=== PATIENT | female | born 1970 | race Caucasian/White ===

== ENCOUNTER 2017-02-03 15:53 | Emergency (ER) | payer OTHER ==
[2017-02-03 16:21] VITALS: BP 110/75; PULSE 98; RESP 20; TEMP 98.1; O2SAT 99
--- NOTE | 2017-02-05 23:45 | CARD ---
APPROVED REPORT EKG Measurement Heart [id number] <Conclusion> Normal sinus rhythm Low voltage QRS Septal infarct, age undetermined Abnormal ECG
== END 2017-02-03 19:02 | disposition left against medical advice (07) ==
LOC: C.ER 15:53
DX: R07.9 Chest pain, unspecified (principal); Z02.9 Encounter for administrative examinations, unspecified

== ENCOUNTER 2017-02-04 13:51 | Emergency (ER) | payer OTHER ==
--- NOTE | 2017-02-04 14:17 | C.PDOC ---
History Of Present Illness 46 year old patient, with a history of Lupus, presents to the ED complaining of chronic generalized body pain. Patient states the pain has been worse for the past week to her upper abdomen and right flank area. Patient denies shortness of breath, chest pain, numbness, weakness, incontinence, vomiting, diarrhea, or fever. Time Seen by Provider: 02/04/17 14:08 Chief Complaint (Nursing): Back Pain History Per: Patient History/Exam Limitations: no limitations Onset/Duration Of Symptoms: Worse Since (1 week), Other (chronic pain) Current Symptoms Are (Timing): Still Present Quality Of Discomfort: "Pain" Severity: Mild Pain Scale Rating Of: 3 Previous Symptoms: Chronic Pain Associated Symptoms: None Exacerbating Factor(s): Nothing Recent travel outside of the [place]: No Past Medical History Reviewed: Historical Data, Nursing Documentation, Vital Signs Vital Signs: Last Vital Signs Temp 97.7 F 02/04/17 22:34 Pulse 76 02/04/17 22:34 Resp 16 02/04/17 22:34 BP 117/66 02/04/17 22:34 Pulse Ox 99 02/04/17 22:34 - Medical History PMH: Arthritis, Asthma, Bronchitis, Depression, Hypothyroidism, Migraine, Rheumatoid Arthritis Surgical History: Appendectomy, Cholecystectomy, Tonsillectomy Family History: States: Unknown Family Hx - Social History Hx Tobacco Use: Yes Hx Alcohol Use: No Hx Substance Use: No - Immunization History Hx Tetanus Toxoid Vaccination: No Hx Influenza Vaccination: No Hx Pneumococcal Vaccination: No Review Of Systems Except As Marked, All Systems Reviewed And Found Negative. Constitutional: Negative for: Fever Cardiovascular: Negative for: Chest Pain Respiratory: Negative for: Shortness of Breath Gastrointestinal: Positive for: Abdominal Pain. Negative for: Vomiting, Diarrhea Musculoskeletal: Positive for: Back Pain, Other (right flank) Neurological: Negative for: Weakness, Numbness Physical Exam - Physical Exam Appears: Non-toxic, No Acute Distress Skin: Warm, Dry Head: Atraumatic, Normacephalic Neck: Normal ROM, Supple Chest: Symmetrical, Tenderness (Right ribs) Gastrointestinal/Abdominal: Soft, Tenderness (RUQ) Back: Other (right upper back tenderness) Neurological/Psych: Oriented x3, Normal Speech, Normal Cognition Gait: Steady ED Course And Treatment - Laboratory Results Result Diagrams: 02/04/17 15:09 02/04/17 15:09 O2 Sat by Pulse Oximetry: 100 (RA) Pulse Ox Interpretation: Normal - Other Rad Chest XR X-Ray: Viewed By Me, Read By Radiologist (Martha Marino) Interpretation: HISTORY: right sided pain. COMPARISON: Comparison chest 12/16. TECHNIQUE: Chest PA and lateral. FINDINGS: LUNGS: Mild bibasilar atelectasis. Additionally, the interstitial markings are slightly increased and coarsened ; rule out sequela of reactive/inflammatory airway disease or viral illness. PLEURA: No significant pleural effusion identified. No pneumothorax apparent. CARDIOVASCULAR: Normal. OSSEOUS STRUCTURES: No significant abnormalities. VISUALIZED UPPER ABDOMEN: Normal. OTHER FINDINGS: None. IMPRESSION: Mild bibasilar atelectasis. Additionally, the interstitial markings are slightly increased and coarsened; rule out sequela of reactive/inflammatory airway disease or viral illness. - CT Scan/US Abdomen US Other Rad Studies (CT/US): Read By Radiologist (Martha Marino), Radiology Report Reviewed CT/US Interpretation: Right upper quadrant ultrasound dated 02/04/2017. History : Pain. Sonographic evaluation limited to the right upper quadrant performed. Comparison made with prior CTA of the chest 04/24/2015 which image the upper abdomen. Findings: The liver is upper limits of normal measuring nearly 17 cm in CC dimension. Liver exhibits smooth contour but slight increased echotexture suggesting fatty infiltration ; other infiltrative hepatocellular disease process not excluded. No obvious hepatic mass collection or calcification. Patient is status post cholecystectomy. Echogenic density within the gallbladder fossa may represent metallic surgical clip which are readily visible on prior CT scan. Visualized portions of the pancreas appear grossly unremarkable. Right kidney measures 11.6 times 4.6 x 3.7 cm. No evidence shadowing calculi or hydronephrosis. No obvious renal mass or collection. Impression: Findings suggest mild fatty hepatic infiltration however other infiltrative hepatocellular disease process not excluded. Status post cholecystectomy with echogenic focus within the gallbladder fossa likely representing metallic surgical clip. CTA Other Rad Studies (CT/US): Read By Radiologist (Michelle Hampton MD), Radiology Report Reviewed CT/US Interpretation: EXAM: CT Angiography Chest With Intravenous Contrast. CLINICAL HISTORY: 46 years old, female; Signs and symptoms; Other: Pe; Additional info: Right chest pain, h/o lupus,. elevated ddimer. TECHNIQUE: Axial computed tomographic angiography images of the chest with intravenous contrast using. pulmonary embolism protocol. This CT exam was performed using one or more of the following dose. reduction techniques: automated exposure control, adjustment of the mA and/or kV according to. patient size, and/or use of iterative reconstruction technique. CONTRAST: 100 mL of visipaque administered intravenously. COMPARISON: CT - ANGIO CHEST PE PROTOCO 04/24/2015 9 :44:43 PM. FINDINGS: Pulmonary arteries: Unremarkable. No pulmonary embolism. Aorta: No acute findings. No thoracic aortic aneurysm. Lungs: Small airway trapping and microatelectasis. Subsegmental atelectasis right middle lobe 5.5. mm right middle lobe nodule, with interval increase in size. Pleural space: Unremarkable. No significant effusion. No pneumothorax. Heart: Unremarkable. No cardiomegaly. No significant pericardial effusion. No evidence of RV. dysfunction. Bones/joints: No acute fracture. No dislocation. Soft tissues: Unremarkable. Lymph nodes: Nonspecific hilar and mediastinal lymph nodes. Liver: Prominent liver and spleen. Gallbladder and bile ducts: Prior cholecystectomy. Dystrophic calcifications in the liver. IMPRESSION: No PE or acute aortic findings.. no CT right heart strain. Small airway trapping and microatelectasis, right middle lobe atelectasis. Progressive. No pleural. effusion. Infection, interstitial pneumonitis, Boop possible. No significant pleural or pericardial. effusion. 5.5 mm right middle lobe nodule. In low- risk patients (minimal or absent history of smoking or other known risk factors) , recommend CT. at 12 months. If stable, no further follow-up. For high-risk patients (history of smoking or other known. risk factors), recommend initial CT at 6-12 months. If stable, repeat CT at 18-24 months. Progress Note: Plan: -Labs. -Chest XR. -Abdomen US. -Dilaudid and IV fluids. Patient states she has difficulty taking in air when breathing. D- dimer ordered. CTA ordered and neg for PE. UA pos for UTI. Macrobid given. Patient was informed about non acute Chest CT finding that need to be followed up. Copies of all labs, US, CXR and CT were given to the patient with instructions to follow up with PMD within 1-2 days and bring all her results copies to the appointment. Patient also was instructed that she needs to repeat CT chest in 6 months. Disposition - Disposition Disposition: HOME/ ROUTINE Disposition Time: 22:22 Condition: IMPROVED Additional Instructions: Follow up with PMD within 1-2 days. Return to ED if feel worse. Prescriptions: Nitrofurantoin Macrocrystals [Macrobid] 1 cap PO BID #14 cap Ibuprofen [Motrin Tab] 600 mg PO Q8 #30 tab oxyCODONE/Acetaminophen [Percocet 5/325 mg Tab] 1 tab PO QID PRN #20 tab PRN Reason: Pain Instructions: Flank Pain (ED), Urinary Tract Infection in Women (ED) - Clinical Impression Clinical Impression: Flank pain, UTI (urinary tract infection) - PA / FEEDER ASSOCIATE / Resident Statement MD/DO has reviewed & agrees with the documentation as recorded. - Scribe Statement The provider has reviewed the documentation as recorded by the Scribe Ria Chowdhury All medical record entries made by the Scribe were at my direction and personally dictated by me. I have reviewed the chart and agree that the record accurately reflects my personal performance of the history, physical exam, medical decision making, and the department course for this patient. I have also personally directed, reviewed, and agree with the discharge instructions and disposition.
[2017-02-04] MEDS ORDERED: Sodium Chloride 0.9% 1,000 ML IV STA (14:47)
--- NOTE | 2017-02-04 15:01 | RAD ---
HISTORY: right sided pain COMPARISON: Comparison chest 12/16/2015 TECHNIQUE: Chest PA and lateral FINDINGS: LUNGS: Mild bibasilar atelectasis. Additionally, the interstitial markings are slightly increased and coarsened ; rule out sequela of reactive/inflammatory airway disease or viral illness PLEURA: No significant pleural effusion identified. No pneumothorax apparent. CARDIOVASCULAR: Normal. OSSEOUS STRUCTURES: No significant abnormalities. VISUALIZED UPPER ABDOMEN: Normal. OTHER FINDINGS: None. IMPRESSION: Mild bibasilar atelectasis. Additionally, the interstitial markings are slightly increased and coarsened; rule out sequela of reactive/inflammatory airway disease or viral illness.
[2017-02-04] MEDS ORDERED: Sodium Chloride 0.9% 1,000 ML ONE (15:10)
[2017-02-04 15:14] LABS: BASO # 0.2 K/uL (0.0-0.2); BASO % 1.5 % (0.0-2.0); EOS # 0.1 K/uL (0.0-0.7); EOS % 1.5 % (0.0-4.0); HEMATOCRIT 43.1 % (34.0-47.0); LYMPH # 2.6 K/uL (1.0-4.3); MEAN CELL VOLUME 89.7 fL (81.0-99.0); MEAN CORPUSCULAR HEMOGLOBIN 30.3 pg (27.0-31.0); MEAN CORPUSCULAR HGB CONC 33.8 g/dL (33.0-37.0); MEAN PLATELET VOLUME 9.7 fL (7.2-11.7); MONO # 0.4 K/uL (0.0-0.8); MONO % 4.2 % (0.0-10.0); RED CELL DISTRIBUTION WIDTH 13.7 % (11.5-14.5); WHITE BLOOD COUNT 10.2 K/uL (4.8-10.8)
[2017-02-04 15:21] LABS: CHLORIDE 100 mmol/L (98-107); POTASSIUM 4.5 mmol/L (3.6-5.2); SODIUM 137 mmol/L (132-148)
[2017-02-04 15:23] LABS: AMYLASE 84 U/L (30-110)
[2017-02-04 15:24] LABS: ALB/GLOB RATIO 1.2 (1.0-2.1); ALKALINE PHOSPHATASE 135 U/L (38-126); ALT/SGPT 76 U/L (9-52); AST/SGOT 48 U/L (14-36); BILIRUBIN,TOTAL 0.4 mg/dL (0.2-1.3); BLOOD UREA NITROGEN 17 mg/dL (7-17); CALCIUM 9.4 mg/dl (8.6-10.4); CARBON DIOXIDE 24 mmol/L (22-30); GFR AFRICAN-AMERICAN > 60; GLUCOSE,RANDOM 240 mg/dL (65-105); TOTAL PROTEIN 7.6 g/dL (6.3-8.3)
--- NOTE | 2017-02-04 16:21 | US ---
Right upper quadrant ultrasound dated 02/04/2017. History: Pain. Sonographic evaluation limited to the right upper quadrant performed. Comparison made with prior CTA of the chest 04/24/2015 which image the upper abdomen. Findings: The liver is upper limits of normal measuring nearly 17 cm in CC dimension. Liver exhibits smooth contour but slight increased echotexture suggesting fatty infiltration ; other infiltrative hepatocellular disease process not excluded. No obvious hepatic mass collection or calcification. Patient is status post cholecystectomy. Echogenic density within the gallbladder fossa may represent metallic surgical clip which are readily visible on prior CT scan. Visualized portions of the pancreas appear grossly unremarkable. Right kidney measures 11.6 times 4.6 x 3.7 cm. No evidence shadowing calculi or hydronephrosis. No obvious renal mass or collection Impression: Findings suggest mild fatty hepatic infiltration however other infiltrative hepatocellular disease process not excluded. Status post cholecystectomy with echogenic focus within the gallbladder fossa likely representing metallic surgical clip.
[2017-02-04] MEDS ORDERED: Iodixanol 320 MG/ML 100 ML BOTTLE IV ONE (17:16)
[2017-02-04 20:41] LABS: RBC URINE 6 /hpf (0-3); URINE BACTERIA OCC (<OCC); URINE BILIRUBIN NEGATIVE (NEGATIVE); URINE BLOOD NEGATIVE (NEGATIVE); URINE COLOR Yellow (YELLOW); URINE GLUCOSE (UA) 3+ mg/dL (Normal); URINE KETONE NEGATIVE (NEGATIVE); URINE LEUKOCYTE ESTERASE NEG Leu/uL (Negative); URINE PROTEIN NEGATIVE (NEGATIVE); URINE UROBILINOGEN NORMAL mg/dL (0.2-1.0); WBC URINE 1 /hpf (0-5)
[2017-02-04 20:45] VITALS: RESP 16
[2017-02-04 22:35] VITALS: BP 117/66; PULSE 76; TEMP 97.7
[2017-02-04 23:24] VITALS: O2SAT 100
--- NOTE | 2017-02-05 10:01 | CT ---
CTA chest dated 02/04/2017. Contiguous helical/transaxial sections of the chest performed in standard fashion following intravenous injection of approximately 100 cc of Visipaque 320 contrast material employing CTA protocol. Additional 2 dimensional sagittal and coronal reformats provided. Comparison made with prior CTA chest 04/24/2015. Radiation dose: Total exam DLP = 437.89 mGy-cm. . Findings: Visualized pulmonary trunk, right and left main, lobar, segmental and proximal subsegmental branches of the pulmonary arteries are well opacified with no definitive filling defects seen to suggest acute central pulmonary embolus. Pulmonary trunk measures approximately 2.55 cm. Heart size within range of normal. No pericardial effusion. Ascending thoracic aorta measures approximately 2.92 cm and descending thoracic aorta measures approximately 2.19 cm. No evidence of aortic aneurysm or dissection. No significant mediastinal adenopathy. Few tiny mediastinal lymph nodes are noted. Central airways are midline and patent. No endobronchial lesions. Mild atelectasis of both lower lung orona right greater than left including right middle lobe region. . There the areas of air trapping seen in the upper and lower lobes bilaterally. Rule out infection -pneumonitis. Small 5 mm nodule left lung base and 6 mm nodule right middle lobe. Follow-up 5 CT scan 12 months low risk patients and 6 months in high risk patients. Patient is status post cholecystectomy. . Liver appears borderline enlarged. Small irregular calcifications seen along the posterior hepatic on margin as well as in the right lobe liver nonspecific. Patient is status post cholecystectomy. . Impression: Evidence acute central pulmonary embolus. Atelectatic changes are present within both the lower lung orona right greater than left including right middle lobe. There are also ground-glass opacities and mosaic appearance the suggesting air trapping and possible infection -pneumonitis. . Nodules small nodules are seen in the of right middle lobe and left lung base. Follow-up as per Fleischner criteria mentioned above.
== END 2017-02-04 22:35 | disposition home or self-care (01) ==
LOC: C.ER 13:51
DX: N39.0 Urinary tract infection, site not specified (principal); R10.11 Right upper quadrant pain